=== PATIENT | male | born 1975 | race Caucasian/White ===

== ENCOUNTER 2021-09-10 05:11 | Emergency (ER) | payer OTHER ==
[~2021-09-10] VITALS: Ht 175.3 cm; Wt 104.3 kg
[2021-09-10] MEDS ORDERED: SODIUM CHLORIDE 0.9% 1000ML 1,000 ML IV STA (05:21)
[2021-09-10] MEDS ORDERED: Morphine 4mg INJECTION 4 MG/ML INJ IV STA (05:21)
[2021-09-10] MEDS ORDERED: KETOROLAC TROMETHAMINE 30 MG/ML VIAL IV STA (05:21)
[2021-09-10] MEDS ORDERED: ONDANSETRON HCL INJ 2MG/ML 2ML 2 MG/ML VIAL IV STA (05:21)
[2021-09-10] MEDS ORDERED: ONDANSETRON HCL INJ 2MG/ML 2ML 2 MG/ML VIAL ONE (05:39)
[2021-09-10] MEDS ORDERED: KETOROLAC TROMETHAMINE 30 MG/ML VIAL ONE (05:39)
[2021-09-10] MEDS ORDERED: Morphine 2mg Syringe 2 MG/ML SYR ONE (05:39)
[2021-09-10 05:42] LABS: BASOPHILS # (AUTO) 0.1 (0.0-0.1); BASOPHILS % 0.7 % (0.0-1.0); EOSINOPHILS # (AUTO) 0.2 (0.0-0.4); EOSINOPHILS % 2.2 % (0.0-6.0); HEMATOCRIT 51.4 % (38.2-49.6); LYMPHOCYTES # (AUTO) 3.6 (1.0-3.2); LYMPHOCYTES % 33.5 % (18.0-39.1); MEAN CORPUSCULAR HEMOGLOBIN 28.3 pg (28-32); MEAN CORPUSCULAR HGB CONC 33.1 g/dL (31-35); MEAN CORPUSCULAR VOLUME 85.5 fL (81-99); MONOCYTES # (AUTO) 1.2 (0.2-0.8); MONOCYTES % 10.9 % (4.4-11.3); NEUTROPHILS # (AUTO) 5.5 (2.1-6.9); NEUTROPHILS % 51.5 % (38.7-80.0); PLATELET COUNT 314 x10e3/uL (140-360); RED BLOOD COUNT 6.01 x10e6/uL (4.3-5.7); RED CELL DISTRIBUTION WIDTH 13.7 % (11.7-14.4)
[2021-09-10 06:15] LABS: ALBUMIN 3.5 g/dL (3.5-5.0); ALBUMIN/GLOBULIN RATIO 0.9 (0.8-2.0); CREATININE, SERUM 1.08 mg/dL (0.72-1.25)
[2021-09-10 06:21] LABS: CLARITY,URINE TURBID (CLEAR); COLOR,URINE YELLOW (YELLOW); LEUKOCYTE ESTERASE ,URINE NEGATIVE (NEGATIVE); NITRITE,URINE NEGATIVE (NEGATIVE)
[2021-09-10 06:22] LABS: KETONES,URINE NEGATIVE (NEGATIVE); PROTEIN,URINE DIPSTICK NEGATIVE (NEGATIVE); URINE UROBILINOGEN 0.2 mg/dL (0.2 - 1)
[2021-09-10 06:27] LABS: BACTERIA,URINE FEW /HPF; EPITHELIAL CELLS,URINE FEW /LPF; RBC,URINE >50 /HPF (0-5); WBC,URINE (MAN) 0-5 /HPF (0-5)
[2021-09-10 06:36] VITALS: BP 132/95
[2021-09-10] MEDS ORDERED: KETOROLAC TROME10 MG PO (06:41)
[2021-09-10] MEDS ORDERED: FLOMAX0.4 MG PO (06:41)
[2021-09-10] MEDS ORDERED: ONDANSETRON ODT4 MG PO (06:41)
[2021-09-10] MEDS ORDERED: HYDROCODON-ACE1 EA11 PO (06:41)
== END 2021-09-10 06:53 | disposition home or self-care (01) ==
LOC: ER 05:24
DX: N13.2 Hydronephrosis with renal and ureteral calculous obstruction (principal); Z88.0 Allergy status to penicillin
CPT/HCPCS: 36415; 74176; 80053; 81001; 85025; 87086; 99284; J1885; J2270; J2405; J7030